=== PATIENT | female | born 1970 | race Caucasian/White ===

== ENCOUNTER 2019-07-22 18:32 | Emergency (ER) | payer OTHER ==
[~2019-07-22] VITALS: Ht 165.1 cm; Wt 68.0 kg
[~2019-07-22 18:32] MED LIST: CARISOPRODOL 3350 MG PO; CYMBALTA; MEDROLDOSEPACK PO; MOBIC7.5 M1 PO; NOHOMEMEDICATIONS; NORCO 5-325 TA1 EACH PO; PREDNISONE 20 M20 M1 PO; RISPERDAL; ROBAXIN500 MG PO; ULTRAM 50MG TAB50 MG PO; XANAX 0.5 MG0.5 M1 PO; XANAX 1 MG TABLE1 MG PO
[2019-07-22] MEDS ORDERED: ALEVE220 MG PO (18:39)
[2019-07-22 20:35] VITALS: BP 119/76
[2019-07-22] MEDS ORDERED: NORCO 5-325 TA1 EAC1 PO (20:38)
== END 2019-07-22 21:45 | disposition home or self-care (01) ==
LOC: ER 18:32
DX: S63.501A Unspecified sprain of right wrist, initial encounter (principal); M79.7 Fibromyalgia; F17.210 Nicotine dependence, cigarettes, uncomplicated; Z90.49 Acquired absence of other specified parts of digestive tract; Z90.710 Acquired absence of both cervix and uterus; Z88.1 Allergy status to other antibiotic agents; Z88.6 Allergy status to analgesic agent; Z88.8 Allergy status to other drugs, medicaments and biological substances; V23.4XXA Motorcycle driver injured in collision with car, pick-up truck or van in traffic accident, initial encounter; Y93.89 Activity, other specified; Y92.488 Other paved roadways as the place of occurrence of the external cause; Y99.8 Other external cause status